=== PATIENT | male | born 1965 | race Caucasian/White ===

== ENCOUNTER 2022-09-02 12:04 | Emergency (ER) | payer MEDICARE, OTHER, SELFPAY ==
[2022-09-02 12:46] VITALS: BP 113/81; PULSE 139; RESP 16; TEMP 36.4; O2SAT 95
[2022-09-02 14:43] LABS: Basophils # 0.1 10^3/uL (0.0-0.1); Basophils % 0.5 %; Eosinophils # 0.7 10^3/uL (0.0-0.8); Eosinophils % 6.2 %; Hematocrit 51.5 % (42.0-52.0); Hemoglobin 16.8 g/dL (11.7-16.6); Lymphocytes # 1.4 10^3/uL (0.8-4.8); Lymphocytes % 12.4 %; Mean Corpuscular HGB Conc 32.6 g/dL (30.0-36.0); Mean Corpuscular Hemoglobin 31.1 pg (28.0-34.0); Mean Corpuscular Volume 95.2 fl (80-94); Mean Platelet Volume 9.8 fL (7.4-10.4); Monocytes # 1.4 10^3/uL (0.2-0.9); Monocytes % 12.9 %; Neutrophils # 7.51 10^3/uL (1.8-7.7); Neutrophils % 67.4 %; Nucleated Red Blood Cells % 0 %; Platelet Count 309 10^3/cmm (130-400); Red Blood Count 5.41 10^6/uL (4.1-5.3); Red Cell Distribution Width 13.8 % (12.1-15.1); White Blood Count 11.2 10^3/uL (4.0-10.0)
--- NOTE | 2022-09-02 15:57 | ED_ITS ---
HPI - Wound/Laceration General: Chief Complaint: Wound/Laceration Stated Complaint: skin abnormality Time Seen by Provider: 09/02/22 15:52 Source: patient Mode of arrival: ambulatory Limitations: no limitations History of Present Illness: 57-year-old male states he has had erythema to his right lower leg he has had a history of cellulitis states he had a cut there a week ago and has had worsening redness he denies any fever denies any pain he denies any worsening proving factors. Associated symptoms: Denies chills, fever(s), nausea or vomiting Review of Systems Const: Denies: fever(s), chills, body aches or change in appetite Eyes: Denies: blurry vision or eye discomfort ENMT: Denies: throat pain or dental pain Card: Denies: chest pain Resp: Denies: dyspnea GI: Denies: abdominal pain, nausea, vomiting or diarrhea : Denies: dysuria Musc: Denies: neck pain or back pain Skin/Breast: Reports: erythema Neuro: Denies: headache(s) Psych: Denies: depression Sky/Lymph: Denies: easy bruising All/Imm: Denies: urticaria Physical Exam Const: COMMON NORMALS: no acute distress, patient oriented x3 and healthy appearing HENMT: COMMON NORMALS: normocephalic and atraumatic HEAD & SCALP: normocephalic and atraumatic Eye: COMMON NORMALS: Equal, round and reactive pupils present and EOMs intact bilaterally PUPIL: Yes Equal, round and reactive pupils present Neck/C-Spine: COMMON NORMALS: full ROM and supple Chest: COMMONS NORMALS: normal inspection of the chest and normal palpation of entire chest wall Resp: COMMON NORMALS: normal respiratory effort, No retractions, No use of accessory muscles and clear to auscultation bilaterally AUSCULTATION: clear to auscultation bilaterally Cardio: COMMON NORMALS: regular rate, regular rhythm and No murmurs present (Cardio) RATE: regular rate RHYTHM: regular rhythm GI: COMMON NORMALS: Normal to inspection, nondistended, normoactive bowel sounds present, Soft to palpation, non-tender and no masses PALPATION: Yes Soft to palpation Extremity: COMMON NORMALS: full ROM NARRATIVE EXTREMITY EXAM: Cellulitis noted to right lower leg no signs of DVT distal pulses intact Neuro: COMMON NORMALS: patient oriented x3, moves all extremities and no focal motor deficits Psych: COMMON NORMALS: mental status grossly normal, Normal thought process present and cooperative THOUGHT PROCESS: Normal thought process present Skin: COMMON NORMALS: no rashes or lesions noted and no wounds GENERAL SKIN EXAM: no rashes or lesions noted Course Vital Signs: Vital signs: Vital Signs Temperature 97.6 F 09/02/22 12:46 Pulse Rate 139 H 09/02/22 12:46 Respiratory Rate 16 09/02/22 12:46 Blood Pressure 113/81 09/02/22 12:46 Pulse Oximetry 95 09/02/22 12:46 Oxygen Delivery Me thod 09/02/22 12:46 MDM - Wound/Laceration Medical Decision Making Patient presents here with cellulitis his white count is normal he is nonseptic appearing no signs of DVT patient given Rocephin here we will place him on Keflex as well he is to follow-up PCP and return if worsening. Lab Data 09/02/22 14:30 Laboratory Results WBC 11.2 10^3/uL (4.0-10.0) H 09/02/22 14:30 RBC 5.41 10^6/uL (4.1-5.3) H 09/02/22 14:30 Hgb 16.8 g/dL (11.7-16.6) H 09/02/22 14:30 Hct 51.5 % (42.0-52.0) 09/02/22 14:30 MCV 95.2 fl (80-94) H 09/02/22 14:30 MCH 31.1 pg (28.0-34.0) 09/02/22 14:30 MCHC 32.6 g/dL (30.0-36.0) 09/02/22 14:30 RDW 13.8 % (12.1-15.1) 09/02/22 14:30 Plt Count 309 10^3/cmm (130-400) 09/02/22 14:30 MPV 9.8 fL (7.4-10.4) 09/02/22 14:30 Neut % (Auto) 67.4 % 09/02/22 14:30 Lymph % (Auto) 12.4 % 09/02/22 14:30 Pacific % (Auto) 12.9 % 09/02/22 14:30 Eos % (Auto) 6.2 % 09/02/22 14:30 Baso % (Auto) 0.5 % 09/02/22 14:30 Neut # (Auto) 7.51 10^3/uL (1.8-7.7) 09/02/22 14:30 Lymph # (Auto) 1.4 10^3/uL (0.8-4.8) 09/02/22 14:30 Pacific # (Auto) 1.4 10^3/uL (0.2-0.9) H 09/02/22 14:30 Eos # (Auto) 0.7 10^3/uL (0.0-0.8) 09/02/22 14:30 Baso # (Auto) 0.1 10^3/uL (0.0-0.1) 09/02/22 14:30 Nucleated RBC % (auto) 0 % 09/02/22 14:30 Nucleated RBCs # 0.0 /100WBC 09/02/22 14:30 Discharge Plan Discharge Patient Disposition: Home Clinical Impression: Cellulitis Condition: Stable Prescriptions: New cephalexin 500 mg capsule 500 mg PO QID 10 Days Qty: 40 0RF Discharge Orders: Discharge ED (Routine); Ordered 09/02/22 Ordered By: Manuel Mcneil Discharge Diet: Advance as tolerated Discharge Activity: Resume usual activity Patient Instructions: Cellulitis (ED) Coding Level of Care Code ED Defense Travel Administrator for Kishan Dick
[2022-09-02] MEDS: cefTRIAXone 1,000 MG in lidocaine 1% 2.1 ML 2 MG IM (16:12)
== END 2022-09-02 16:20 | disposition home or self-care (01) ==
PROVIDERS: Emergency Provider Emergency Medicine
DX: L03.115 Cellulitis of right lower limb (principal)
CPT/HCPCS: 36415; 85025; 96372; 99284; J0696

== ENCOUNTER 2022-09-06 06:33 | Emergency (ER) | payer MEDICARE, OTHER, SELFPAY ==
[2022-09-06 06:45] VITALS: BP 119/71; PULSE 87; RESP 16; TEMP 36.7; O2SAT 97; BMI 23.6
--- NOTE | 2022-09-06 07:03 | W.ED.ALLEREA ---
HPI - Allergic Reaction General: Chief complaint: Allergic Reaction Stated complaint: hives Time Seen by Provider: 09/06/22 06:59 History of Present Illness: HPI narrative: 57 yo male that presents with rash. Patient was seen here a few days ago and treated for cellulitis. Taking keflex. Onset 2 days ago of rash on arms, chest and legs with associated itching. No throat swelling or trouble breathing. No prior h/o allergic reaction to medications. Taking benadryl with improvement. Cellulitis on right arm and right leg is improving Associated symptoms: Deny hoarseness Review of Systems Narrative: generalized rash Const: Denies: fever(s) ENMT: Denies: throat pain, uvular edema, odynophagia, hoarseness or swelling of lips/tongue Resp: Denies: dyspnea or wheezing Skin/Breast: Reports: rash Physical Exam Const: COMMON NORMALS: no acute distress, average body habitus, patient oriented x3, healthy appearing and alert HENMT: THROAT: posterior oropharynx normal and tonsils normal; no uvular edema Resp: EFFORT & INSPECTION: Yes able to speak in complete sentences, No respiratory distress, No audible wheezes and Yes other (normal breath sounds bilaterally) Cardio: COMMON NORMALS: regular rate, S1 normal heart sound present and S2 normal heart sound present RATE: regular rate HEART SOUNDS: S1 normal heart sound present and S2 normal heart sound present GI: INSPECTION: Yes normal to inspection Extremity: OTHER: erythematous area on dorsum of right forearm and right hand with scaling; right lower leg with erythema on pre-tibial surface ; normal distal pulses and sensory / motor function Neuro: COMMON NORMALS: patient oriented x3 SENSORIUM/ORIENTATION: Yes alert Skin: RASHES: rashes noted (urticarial rash on arms, neck, torso) Course Vital Signs: Vital signs: Vital Signs Temperature 98.1 F 09/06/22 06:45 Pulse Rate 87 09/06/22 06:45 Respiratory Rate 16 09/06/22 06:45 Blood Pressure 119/71 09/06/22 06:45 Pulse Oximetry 97 09/06/22 06:45 Oxygen Delivery Me thod 09/06/22 06:45 MDM - Allergic Reaction Medical Decision Making Patient presents with a generalized urticarial rash likely secondary to the cephalexin he has been taking for cellulitis. He does have clinical improvement of his cellulitis. I am going to switch him to doxycycline 100 mg twice daily x7 days. I am placing him also on prednisone 50 mg x 5 days. Have also structured him to take Benadryl 4 times daily. Medical Records patient presents with urticarial rash likely due to cephalexin. Cellulitis improving but patient will need full course of another abx. will treat allergic rxn with prednisone and anti-histamines. Will start doxycycline 100mg BID x 7 days Discharge Plan Discharge Patient Disposition: Home Clinical Impression: Allergic reaction, Cellulitis Condition: Stable Prescriptions: New prednisone 50 mg tablet 50 mg PO DAILY 5 Days Qty: 5 0RF doxycycline hyclate 100 mg tablet 100 mg PO BID 7 Days Qty: 14 0RF No Action cephalexin 500 mg capsule 500 mg PO QID 10 Days Qty: 40 0RF Discharge Orders: Discharge ED (Routine); Ordered 09/06/22 Ordered By: Carola Pierson Patient Instructions: Urticaria (ED), Cellulitis (ED), Opioid Safety, Pain Management Activity Restrictions/Additional Instructions: Stop the cephalexin start the doxycycline twice a day until gone take benadryl 4 times a day as needed for itching follow up in 1 week with your primary doctor Coding Level of Care Code ED Grievance And Appeals Coordinator for Kishan Fwd Exam Detailed
[2022-09-06] MEDS: predniSONE 20 mg Tablet 60 MG PO (07:15)
--- NOTE | 2022-09-06 07:17 | PC.NURSE ---
This nurse dropped one tablet and had to reorder a new one.
[2022-09-06] MEDS: predniSONE 20 mg Tablet PO (07:20)
== END 2022-09-06 07:20 | disposition home or self-care (01) ==
PROVIDERS: Emergency Provider Emergency Medicine
DX: T78.40XA Allergy, unspecified, initial encounter (principal); X58.XXXA Exposure to other specified factors, initial encounter; L50.9 Urticaria, unspecified; Z79.2 Long term (current) use of antibiotics; L03.90 Cellulitis, unspecified
CPT/HCPCS: 99283; J7512

== ENCOUNTER 2022-09-20 10:14 | Emergency (ER) | payer MEDICARE, OTHER, SELFPAY ==
[2022-09-20 10:16] VITALS: BP 122/85; PULSE 102; RESP 16; TEMP 36.7; O2SAT 95; BMI 25.0
--- NOTE | 2022-09-20 11:54 | W.ED.ALLEREA ---
HPI - Allergic Reaction General: Chief complaint: Allergic Reaction Stated complaint: rash Time Seen by Provider: 09/20/22 11:27 Source: patient Mode of arrival: ambulatory History of Present Illness: HPI narrative: 57-year-old male presents emergency room complaining of rash and pruritus. He was on an antibiotic for cellulitis for last 2 weeks he did intermittently had itching is gotten progressively worse he has taken Benadryl for which helps. He was on doxycycline prior to that he had been on cephalexin has a similar type reaction. He is on day 6 of 7 of the doxycycline. Is been getting progressively worsening despite his use of albuterol. Cellulitis on his legs is improved somewhat. MD complaint: allergic reaction Onset (ago): day(s) Exposure: medication (Doxycycline) Associated symptoms: Deny abdominal pain, difficulty breathing, dysphagia, dizziness, facial swelling, hoarseness, itching, lip swelling, nausea, tongue swelling or vomiting Severity: mild Treatment prior to arrival: benadryl Previous Allergic Reaction History: other (Rash and pruritus from cephalexin) Review of Systems Const: Denies: fever(s), chills, body aches, change in appetite, fatigue or malaise ENMT: Denies: hoarseness Card: Denies: chest pain, edema, dyspnea on exertion or orthopnea Resp: Denies: dyspnea, productive cough or non-productive cough GI: Denies: abdominal pain, nausea, vomiting or dysphagia : Denies: flank pain, dysuria, urinary frequency or urinary urgency Skin/Breast: Denies: rash or pruritus Neuro: Denies: dizziness All/Imm: Denies: tongue swelling or facial swelling [facility] ED PFSH: Medical History (Updated 09/20/22 @ 11:56 by Arnoldo Reaves DO) Cellulitis Physical Exam Const: COMMON NORMALS: no acute distress GENERAL APPEARANCE: cooperative and comfortable ORIENTATION/CONSCIOUSNESS: Yes awake, Yes oriented to person, Yes oriented to place and Yes oriented to time HENMT: COMMON NORMALS: normocephalic, atraumatic and hearing grossly normal bilaterally HEAD & SCALP: normocephalic and atraumatic Resp: COMMON NORMALS: normal respiratory effort, No retractions, No use of accessory muscles and clear to auscultation bilaterally AUSCULTATION: clear to auscultation bilaterally Cardio: COMMON NORMALS: regular rate, regular rhythm and No murmurs present (Cardio) RATE: regular rate RHYTHM: regular rhythm GI: COMMON NORMALS: Soft to palpation and No hepatosplenomegaly present AUSCULTATION: Yes normoactive bowel sounds PALPATION: Yes Soft to palpation, No Tenderness to palpation present (GI), No Guarding due to palpation present (GI) and Yes No hepatosplenomegaly present Extremity: COMMON NORMALS: normal to inspection, capillary refill normal, no clubbing, cyanosis or edema, no calf tenderness and no pedal edema Neuro: SENSORIUM/ORIENTATION: Yes oriented to person, Yes oriented to place and Yes oriented to time Skin: OTHER: Excoriations lower extremities bilaterally with mild thickening of dry eschars in place no significant erythema with this time. Course Vital Signs: Vital signs: Vital Signs Temperature 98.1 F 09/20/22 10:16 Pulse Rate 95 09/20/22 12:26 Respiratory Rate 15 09/20/22 12:26 Blood Pressure 123/83 09/20/22 12:26 Pulse Oximetry 96 09/20/22 12:26 Oxygen Delivery Me thod 09/20/22 10:16 MDM - Allergic Reaction Medical Decision Making Cellulitis is better. We will have him stop the doxycycline and put him on steroids and hydroxyzine. So as not to blur between changing antibiotics will hold off on starting him on any Bactrim him checkup with his primary care doctor in the next 2 to 3 days if he is any signs of recurrent cellulitis might try Bactrim. Medical Records I reviewed the patient's medical records. Lab Data I reviewed the patient's lab results. Discharge Plan Discharge Patient Disposition: Home Clinical Impression: Allergic reaction, Cellulitis Condition: Stable Prescriptions: New Medrol (Nate) 4 mg tablets,dose pack See Rx Instructions .ROUTE .COMPLEX Qty: 21 0RF Rx Instructions: orally per package directions hydroxyzine HCl 25 mg tablet 25 mg PO Q6H PRN (Reason: itching) Qty: 20 0RF Discharge Orders: Discharge ED (Routine); Ordered 09/20/22 Ordered By: Arnoldo Reaves Discharge Activity: Increase activity as tolerated Patient Instructions: Opioid Safety, Pain Management Activity Restrictions/Additional Instructions: You are seen today for allergic reaction likely to the doxycycline. Stop the doxycycline. You are given steroids here start oral steroids tomorrow and complete the 7-day course. He can use hydroxyzine as needed. Follow-up with your doctor to reevaluate in 2 to 3 days in the office. We will hold off on restarting any antibiotics so as to prevent any confusion if the reaction persists. Coding Level of Care Code ED Supervisor Industrial Arts Education for Kishan Dick Exam Detailed
[2022-09-20] MEDS: diphenhydrAMINE 50 mg/mL SDV 1mL IVP (12:16)
[2022-09-20 12:26] VITALS: BP 123/83; PULSE 95; RESP 15; O2SAT 96
== END 2022-09-20 12:23 | disposition home or self-care (01) ==
PROVIDERS: Emergency Provider Family Medicine
DX: L03.116 Cellulitis of left lower limb (principal); L03.115 Cellulitis of right lower limb; T36.95XA Adverse effect of unspecified systemic antibiotic, initial encounter; T36.4X5A Adverse effect of tetracyclines, initial encounter
CPT/HCPCS: 96374; 96375; 99284; J1200; J2930

== ENCOUNTER 2022-12-21 07:19 | Emergency (ER) | payer MEDICARE, OTHER, SELFPAY ==
[2022-12-21 07:24] VITALS: BP 140/87; PULSE 106; RESP 16; TEMP 36.3; O2SAT 97; BMI 26.1
--- NOTE | 2022-12-21 07:24 | ED_ITS ---
HPI - Skin/Abscess/Foreign Bdy General: Chief complaint: Skin/Abscess/Foreign Body Stated complaint: skin abnormality Time Seen by Provider: 12/21/22 07:23 Source: patient Mode of arrival: ambulatory Limitations: no limitations History of Present Illness: Patient is a 57-year-old male who presents to ED today with a complaint of what he states is cellulitis to his right lower leg as well as a generalized pruritic rash. Patient states he had a similar presentation about 4 months ago when he was seen here in the ED. He states he was diagnosed with cellulitis and placed on cephalexin. He states he then had an allergic reaction to the Keflex and was ultimately switched to Doxycycline. He was also treated with steroids and Vistaril some point during that episode for allergic reaction/pruritus. Patient denies fevers or chills. Of note he recently had shave biopsies performed to his chin and back lesion. He was scheduled for Mohs surgery of the chin next week but he canceled this appointmen t stating I think the biopsy took care of it . He states his next appointment with dermatology is on 01/05. MD complaint: rash Onset (ago): week(s) Tetanus up to date: yes Location: chest, back, LUE, RUE and RLE Severity: moderate Quality: pruritic Pain Consistency: constant (R LE) Relieving factors: none Exacerbating factors: none Context: none Associated symptoms: Reports no associated symptoms; Deny chills or fever(s) Treatments prior to arrival: none Review of Systems Const: Denies: fever(s), chills, body aches, fatigue or malaise Card: Denies: chest pain Resp: Denies: dyspnea GI: Denies: abdominal pain Skin/Breast: Reports: rash, pruritus and erythema Neuro: Denies: headache(s) PFS ED PFSH: Medical History Cellulitis Physical Exam Const: COMMON NORMALS: no acute distress, average body habitus, patient oriented x3, no limitations, healthy appearing, alert and well nourished Eye: GENERAL EYE: appearance normal, both eyes and all related structures Neck/C-Spine: COMMON NORMALS: no lymphadenopathy Resp: COMMON NORMALS: normal respiratory effort Extremity: COMMON NORMALS: normal to inspection, full ROM, capillary refill normal, no calf tenderness and no pedal edema GENERAL: Yes normal exam except as noted Neuro: COMMON NORMALS: patient oriented x3, moves all extremities, no focal motor deficits and no sensory deficits noted SENSORIUM/ORIENTATION: Yes alert Skin: NARRATIVE SKIN EXAM: pt has an area to anterior R lower leg that is erythematous, warm to the touch, and consists of confluent maculopapular lesions; there is localized edema to the tissue with excoriations he has other rash somewhat similar in appearance without the cellulitic appearance/warmth to his bilateral UEs and trunk-mainly his back; back has several erythematous papules present with several larger scaly plaque-like lesions with diffuse excoriations SKIN IMAGES (MALE): 1. Course Vital Signs: Vital signs: Vital Signs Temperature 97.4 F L 12/21/22 07:24 Pulse Rate 106 H 12/21/22 07:24 Respiratory Rate 16 12/21/22 07:24 Blood Pressure 140/87 12/21/22 07:24 Pulse Oximetry 97 12/21/22 07:24 Oxygen Delivery Me thod 12/21/22 07:24 MDM - Skin/Abscess/Foreign Bdy Medicial Decision Making Patient states his rash is similar to his last episode back in August. He has not been on any antibiotics recently to cause an allergic reaction. I do believe he has probably induced a cellulitis to his right lower extremity from scratching as this area does appear acutely inflamed and warm to the touch which are characteristics not present with the other skin lesions on his back/arms. I would like patient to follow up with dermatology for evaluation/diagnosis of his non-specific dermatitis. I will cover him for the cellulitis with antibiotics and place him on Vistaril to help with the itching. Steroids are not indicated in actue cellulitis so we will hold off on those for now although he may need these later once the cellulitis clears. He has an appointment with dermatology on 01/05. We did discuss him canceling his Mohs surgery for his chin skin lesion. I recommended he contacted the dermatology clinic and try to reschedule this and stressed the importance of this procedure and how a biopsy for diagnosis is not a cure for basal cell carcinoma. Discharge Plan Discharge Patient Disposition: Home Clinical Impression: Cellulitis Condition: Stable Prescriptions: New doxycycline monohydrate 100 mg capsule 100 mg PO Q12H 10 Days Qty: 20 0RF Vistaril 50 mg capsule 50 mg PO Q8H PRN (Reason: itching) Qty: 20 0RF No Action amlodipine 5 mg tablet 5 mg PO DAILY hydrochlorothiazide 12.5 mg tablet 12.5 mg PO DAILY ketoconazole 2 % shampoo 1 applic topical .2x weekly Qty: 120 6RF Rx Instructions: Lather into scalp 2-3 times weekly. Allow to sit on scalp for 5 minutes before rinsing. Discharge Orders: Discharge ED (Routine); Ordered 12/21/22 Ordered By: Jennifer Noguera Patient Instructions: Cellulitis (ED) Activity Restrictions/Additional Instructions: As we discussed I would like you to follow-up with dermatology. You have stated you have an appointment scheduled on 01/05. You indicated you canceled your upcoming Mohs surgery-we discussed speaking to dermatology to reschedule this as this is a very important procedure in treating the skin cancer on your chin. Coding Level of Care Code ED Electron Beam Photo Mask Maker for Kishan Dick
== END 2022-12-21 08:57 | disposition home or self-care (01) ==
PROVIDERS: Emergency Provider Physician Assistant; PCP Family Medicine
DX: L03.115 Cellulitis of right lower limb (principal)
CPT/HCPCS: 99284

== ENCOUNTER → 2023-10-10 15:24 | Outpatient (BNVA) | payer MEDICARE, SELFPAY | PROVIDERS: PCP Family Medicine; Visit Provider Nurse Practitioner Family | DX: L72.0 Epidermal cyst (principal); B35.0 Tinea barbae and tinea capitis; L57.8 Other skin changes due to chronic exposure to nonionizing radiation; D22.4 Melanocytic nevi of scalp and neck; L81.4 Other melanin hyperpigmentation | CPT/HCPCS: 99214 ==

== ENCOUNTER 2023-11-03 12:03 | Emergency (ER) | payer MEDICARE, SELFPAY ==
[2023-11-03 12:05] VITALS: BP 139/89; PULSE 110; RESP 17; TEMP 36.5; O2SAT 96; BMI 25.6
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
--- NOTE | 2023-11-03 12:14 | XR_ITS ---
WS: [id number] [place] [id number] REASON FOR EXAM: trauma/pain/swelling FINDINGS: Right humerus intact without fracture. No soft tissue abnormality. IMPRESSION: No fracture identified.
[2023-11-03 13:09] VITALS: BP 139/89; PULSE 110; RESP 17; TEMP 36.5; O2SAT 96
--- NOTE | 2023-11-03 13:13 | PC.PHAR ---
pt discharged before meds were reconciled- meds that were entered 11/03/23 is what was on ext med history
== END 2023-11-03 13:10 | disposition home or self-care (01) ==
PROVIDERS: Emergency Provider Internal Medicine; PCP Family Medicine
DX: S40.021A Contusion of right upper arm, initial encounter (principal); V86.59XA Driver of other special all-terrain or other off-road motor vehicle injured in nontraffic accident, initial encounter
CPT/HCPCS: 73060; 99283

== ENCOUNTER 2023-11-13 11:57 | Emergency (ER) | payer MEDICARE, SELFPAY ==
[2023-11-13 12:43] VITALS: BP 138/94; PULSE 91; RESP 18; TEMP 36.4; O2SAT 97; BMI 25.6
[2023-11-13 15:33] VITALS: BP 131/107; PULSE 88; RESP 16; O2SAT 96
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
== END 2023-11-13 15:33 | disposition home or self-care (01) ==
PROVIDERS: Emergency Provider Family Medicine; PCP Family Medicine
DX: L03.113 Cellulitis of right upper limb (principal); B35.0 Tinea barbae and tinea capitis; L57.8 Other skin changes due to chronic exposure to nonionizing radiation; D22.4 Melanocytic nevi of scalp and neck; L81.4 Other melanin hyperpigmentation; L57.0 Actinic keratosis; L21.8 Other seborrheic dermatitis
CPT/HCPCS: 17000; 99214; 99283

== ENCOUNTER → 2023-11-15 08:48 | Outpatient (BNVA) | payer MEDICARE, SELFPAY | PROVIDERS: PCP Family Medicine; Visit Provider Dermatology | DX: D48.5 Neoplasm of uncertain behavior of skin (principal) | CPT/HCPCS: 11403; 12032 ==

== ENCOUNTER 2024-12-25 12:56 | Emergency (ER) | payer MEDICARE, SELFPAY ==
[2024-12-25 13:23] VITALS: BP 150/96; PULSE 100; RESP 18; TEMP 36.6; O2SAT 97; BMI 25.0
--- NOTE | 2024-12-25 14:09 | PC.PHAR ---
patient just finished clindamycin 300 tid filled 12/16/24 7 days
--- NOTE | 2024-12-25 14:26 | W.ED.EXTPRO ---
HPI - Extremity Problem General: Chief complaint: Extremity Problem,Nontraumatic Stated complaint: rash on face and leg Time Seen by Provider: 12/25/24 14:07 Source: patient Mode of arrival: ambulatory Limitations: no limitations History of Present Illness: This patient states he is here because he thinks he has cellulitis of his right leg. He states he developed a skin rash similar to that he is experienced in the past and was seen in the urgent care and given clindamycin. He apparently had some hydroxyzine from her previous episode has been taking that periodically as well. States initially had some small dot areas on his skin of his right leg and they were quite pruritic and he was in the shower and it felt good to scrub them and he scrubbed them for quite a while. He states his symptoms have worsened over the past couple days. He denies any fevers or chills body aches joint pains or joint swelling. He denies any blood in his urine blood in his stools etc. He has a history of COPD but does not smoke anymore. He does take ibuprofen on a daily basis for neck pain. He states that he has not had fevers or chills nausea vomiting diarrhea and has been eating and drinking normally. Associated symptoms: Reports rash; Deny chest pain or fever(s) Related Data Home Medications ?Medication ?Instructions ?Recorded ?Confirmed albuterol sulfate 90 mcg/actuation 1 puff inhalation DAILY 11/03/23 12/25/24 aerosol inhaler amlodipine 10 mg tablet 10 mg PO QAM 11/03/23 12/25/24 montelukast 10 mg tablet 10 mg PO QAM 11/03/23 12/25/24 simvastatin 10 mg tablet 10 mg PO QAM 11/03/23 12/25/24 Previous Rx's ?Medication ?Instructions ?Recorded doxycycline hyclate 100 mg capsule 100 mg PO BID 14 days #28 caps 12/25/24 famotidine 40 mg tablet (Pepcid) 40 mg PO BID #14 tabs 12/25/24 hydroxyzine HCl 25 mg tablet 25 mg PO Q6H PRN itching #30 tabs 12/25/24 prednisone 20 mg tablet 20 mg PO BID 7 days #14 tabs 12/25/24 Allergies Allergy/AdvReac Type Severity Reaction Status Date / Time adhesive tape Allergy Unknown Verified 11/13/23 12:43 cephalexin (From Keflex) Allergy ALGY-Rash Verified 11/13/23 12:43 Review of Systems Const: Denies: fever(s) or chills ENMT: Denies: throat pain or odynophagia Card: Denies: chest pain, palpitations, syncope or pre-syncope Resp: Denies: dyspnea, productive cough or non-productive cough GI: Denies: abdominal pain, nausea, vomiting, hematemesis, hematochezia or melena : Denies: flank pain, difficulty urinating, dysuria or hematuria Musc: Reports: extremity swelling; Denies: neck pain or back pain Skin/Breast: Reports: rash, pruritus and erythema Neuro: Denies: headache(s), numbness in extremities or weakness in extremities Psych: Denies: anxiety or depression Endo: Denies: polyuria or polydipsia PFSH ED PFSH: Medical History History of nonmelanoma skin cancer Cellulitis Physical Exam Narrative: EXAM NARRATIVE: He is in no acute distress and makes good eye contact and interacts in a normal fashion. Const: COMMON NORMALS: no acute distress, average body habitus and patient oriented x3 GENERAL APPEARANCE: cooperative and comfortable HENMT: COMMON NORMALS: normocephalic, Normal nasal mucous membranes and turbinates present, moist oral mucous membranes and oropharynx normal HEAD & SCALP: normocephalic FACE & SINUS: face symmetric NOSE: Normal nasal mucous membranes and turbinates present Eye: COMMON NORMALS: Equal, round and reactive pupils present, EOMs intact bilaterally and conjunctivae normal CONJUNCTIVA: Yes conjunctivae normal PUPIL: Yes Equal, round and reactive pupils present Neck/C-Spine: COMMON NORMALS: full ROM, no lymphadenopathy and no JVD Lymph: LYMPHATIC: no lymphadenopathy noted Resp: COMMON NORMALS: normal respiratory effort, No use of accessory muscles and clear to auscultation bilaterally AUSCULTATION: clear to auscultation bilaterally Cardio: COMMON NORMALS: no JVD, regular rate, regular rhythm, No murmurs present (Cardio) and Peripheral pulses 2+ throughout RATE: regular rate RHYTHM: regular rhythm PERIPHERAL PULSES: Peripheral pulses 2+ throughout GI: COMMON NORMALS: Normal to inspection, nondistended, normoactive bowel sounds present, Soft to palpation and non-tender PALPATION: Yes Soft to palpation Back/Pelvis: COMMON NORMALS: thoracic and lumbar spine normal to inspection and no thoracic nor lumbar tenderness Extremity: COMMON NORMALS: full ROM, no calf tenderness and no pedal edema NARRATIVE EXTREMITY EXAM: His right lower extremities remarkable for what appears to be petechiae proximal to an area of marked excoriation from mid anterior leg to ankle. There is no ascending lymphangitis or ascending redness or serpiginous borders. There is no confluence to any erythema. Neuro: COMMON NORMALS: patient oriented x3, moves all extremities, no focal motor deficits and no sensory deficits noted Psych: COMMON NORMALS: mental status grossly normal Skin: COMMON NORMALS: turgor normal SKIN IMAGES (MALE):  1. Area of excoriation with proximal petechiae GENERAL SKIN EXAM: turgor normal and petechiae (Right leg he also has malar distribution of erythema) Course Reevaluation(s): Reevaluation #1: Reviewed findings with the patient in detail. No evidence at this time to suggest TTP or ITP. He has no anemia, thrombocytopenia, hematuria or other findings to support that diagnosis at this time. We also did a more involved history regarding potential tick exposure etc. Patient states he found a tick crawling on him earlier this year but did not have any attached ticks this year. Unlikely to be [place] spotted fever etc. However we will go ahead and switch him to doxycycline, add a course of steroids as well as antihistamines and both H1 and H2 to reduce his pruritus and itching as I think this is contributing to his current clinical picture. I discussed expected course and also specific return precautions. Patient voiced understanding. Time: 17:34 Vital Signs: Vital signs: Vital Signs Temperature 97.9 F 12/25/24 13:23 Pulse Rate 100 12/25/24 13:23 Respiratory Rate 18 12/25/24 13:23 Blood Pressure 150/96 12/25/24 13:23 Pulse Oximetry 97 12/25/24 13:23 Oxygen Delivery Me thod Room Air 12/25/24 13:23 MDM - Extremity (Nontraumatic) Medical Decision Making This patient presented as noted in the HPI. He has had recurrent inflammation possible infection of his right leg. He was previously seen at an outpatient clinic and started on clindamycin. States it is quite pruritic and he is resorted to scratching it particularly when he is bathing in the shower. He denies any fevers or chills or constitutional symptoms otherwise. His clinical exam revealed some scattered petechiae over the right lower leg with excoriated skin distal to that. There was no ascending erythema or lymphangitis or lymphadenopathy. Was a concern that he possibly had a condition such as ITP or TTP as well as possible tick related illness. History did not confirm the latter but laboratories were obtained to ensure that he had no evidence of anemia, thrombocytopenia or other concerning laboratory findings. They were all reassuring. Is not clear what the etiology to his recurrent dermatitis has been on his right lower leg. He apparently is excoriated this area and has some localized infection and therefore we will switch him to doxycycline, course of steroids as well as both H2 and H1 blockers. Does not appear to have any condition that requires admission and further ER evaluation. No evidence at this time to suggest sepsis, necrotizing fasciitis or other deep space infection etc. Lab Data I reviewed the patient's lab results. 12/25/24 14:54 12/25/24 14:54 Laboratory Results WBC 10.21 10^3/uL (3.29-11.43) 12/25/24 14:54 RBC 5.56 10^6/uL (3.85-5.65) 12/25/24 14:54 Hgb 16.40 g/dL (11.27-16.99) 12/25/24 14:54 Hct 52.7 % (37-53) 12/25/24 14:54 MCV 94.8 fl (82-101) 12/25/24 14:54 MCH 29.5 pg (27-33) 12/25/24 14:54 MCHC 31.1 g/dL (30-55) 12/25/24 14:54 RDW 14.1 % (12.1-15.1) 12/25/24 14:54 Plt Count 332 10^3/cmm (157-399) 12/25/24 14:54 MPV 9.3 fL (7.4-10.4) 12/25/24 14:54 Neut % (Auto) 66.5 % 12/25/24 14:54 Lymph % (Auto) 15.7 % 12/25/24 14:54 Mcculloch % (Auto) 12.2 % 12/25/24 14:54 Eos % (Auto) 4.4 % 12/25/24 14:54 Baso % (Auto) 0.8 % 12/25/24 14:54 Neut # (Auto) 6.79 10^3/uL (1.8-7.7) 12/25/24 14:54 Lymph # (Auto) 1.6 10^3/uL (0.8-4.8) 12/25/24 14:54 [place]ulloch # (Auto) 1.3 10^3/uL (0.2-0.9) H 12/25/24 14:54 Eos # (Auto) 0.5 10^3/uL (0.0-0.8) 12/25/24 14:54 Baso # (Auto) 0.1 10^3/uL (0.0-0.1) 12/25/24 14:54 Nucleated RBC % (auto) 0 % 12/25/24 14:54 Nucleated RBCs # 0.0 /100WBC 12/25/24 14:54 PT 12.60 SECONDS (12.1-14.9) 12/25/24 14:54 INR 0.88 (0.8-1.2) 12/25/24 14:54 APTT 30.3 SECONDS (23.9-36.7) 12/25/24 14:54 Sodium 143 mmol/L (136-145) 12/25/24 14:54 Potassium 4.9 mmol/L (3.5-5.1) 12/25/24 14:54 Chloride 106 mmol/L (98-107) 12/25/24 14:54 Carbon Dioxide 22 mmol/L (22-29) 12/25/24 14:54 Anion Gap 19.9 (5-19) H 12/25/24 14:54 BUN 19 mg/dL (6-20) 12/25/24 14:54 Creatinine 0.8 mg/dL (0.7-1.2) 12/25/24 14:54 GFR Calculation 98.9 mL/min (90-130) 12/25/24 14:54 Glucose 106 mg/dL (65-115) 12/25/24 14:54 Calculated Osmolality 299 mOsm/kg (285-295) H 12/25/24 14:54 Calcium 10.2 mg/dL (8.5-10.5) 12/25/24 14:54 Total Bilirubin 0.2 mg/dL (0.15-1.2) 12/25/24 14:54 AST 34 U/L (0-40) 12/25/24 14:54 ALT 35 U/L (0-41) 12/25/24 14:54 Alkaline Phosphatase 91 U/L (40-130) 12/25/24 14:54 Total Protein 7.7 g/dL (6.6-8.7) 12/25/24 14:54 Albumin 4.6 g/dL (3.5-5.2) 12/25/24 14:54 Globulin 3.1 g/dL (1.3-4.6) 12/25/24 14:54 Urine Color Yellow (Yellow) 12/25/24 16:43 Urine Appearance Clear (CLEAR) 12/25/24 16:43 Urine pH 6.5 (5-7) 12/25/24 16:43 Ur Specific [place] 1.019 (1.005-1.030) 12/25/24 16:43 Urine Protein Negative (Negative) 12/25/24 16:43 Urine Glucose (UA) Negative (Normal) 12/25/24 16:43 Urine Ketones Negative (Negative) 12/25/24 16:43 Urine Blood Negative (Negative) 12/25/24 16:43 Urine Nitrate Negative (Negative) 12/25/24 16:43 Urine Bilirubin Negative (Negative) 12/25/24 16:43 Urine Urobilinogen 0.2 mg/dL (Negative) 12/25/24 16:43 Ur Leukocyte Esterase Negative (Negative) 12/25/24 16:43 Urine RBC 0-2 /hpf (0-2) 12/25/24 16:43 Urine WBC 0-5 /hpf (0-5) 12/25/24 16:43 Ur Squamous Epith Cells 0-5 /hpf (0-5) 12/25/24 16:43 Amorphous Sediment Not Reportable 12/25/24 16:43 Urine Bacteria None seen /hpf (NONE) 12/25/24 16:43 Hyaline Casts 0.81 /lpf 12/25/24 16:43 No radiology studies performed this visit Discharge Plan Discharge Patient Disposition: Home Clinical Impression: Cellulitis Condition: Stable Prescriptions: New prednisone 20 mg tablet 20 mg PO BID 7 Days Qty: 14 0RF doxycycline hyclate 100 mg capsule 100 mg PO BID 14 Days Qty: 28 0RF famotidine [Pepcid] 40 mg tablet 40 mg PO BID Qty: 14 0RF hydroxyzine HCl 25 mg tablet 25 mg PO Q6H PRN (Reason: itching) Qty: 30 0RF No Action simvastatin 10 mg tablet 10 mg PO QAM amlodipine 10 mg tablet 10 mg PO QAM montelukast 10 mg tablet 10 mg PO QAM albuterol sulfate 90 mcg/actuation HFA aerosol inhaler 1 puff INHALATION DAILY Discharge Orders: Discharge ED (Routine); Ordered 12/25/24 Ordered By: Tyshawn Little Referrals: Kinga Vann MD [Primary Care Provider] - 4-7 days (ED referral follow-up for right leg cellulitis) Discharge Diet: Advance as tolerated Discharge Activity: Resume usual activity Patient Instructions: Opioid Safety, Pain Management Activity Restrictions/Additional Instructions: As we discussed your blood test today did not show any signs of a serious condition however we made some changes in your medication to help with your right leg condition. You should continue to take those medications that we have prescribed until they are completely finished. You should stop the previous antibiotic that you were given. Should follow-up with your primary care doctor in the next 5 to 7 days for reevaluation but you may return to the emergency department at any time should your symptoms worsen you develop new or concerning symptoms or any other concerns. Print Language: Luxembourgish Coding Level of Care Code ED Controller [employer] for Kishan Dick
[2024-12-25 15:04] LABS: Basophils # 0.1 10^3/uL (0.0-0.1); Basophils % 0.8 %; Eosinophils # 0.5 10^3/uL (0.0-0.8); Eosinophils % 4.4 %; Hematocrit 52.7 % (37-53); Lymphocytes # 1.6 10^3/uL (0.8-4.8); Lymphocytes % 15.7 %; Mean Corpuscular HGB Conc 31.1 g/dL (30-55); Mean Corpuscular Hemoglobin 29.5 pg (27-33); Mean Corpuscular Volume 94.8 fl (82-101); Mean Platelet Volume 9.3 fL (7.4-10.4); Monocytes # 1.3 10^3/uL (0.2-0.9); Monocytes % 12.2 %; Neutrophils # 6.79 10^3/uL (1.8-7.7); Neutrophils % 66.5 %; Nucleated Red Blood Cells % 0 %; Platelet Count 332 10^3/cmm (157-399); Red Blood Count 5.56 10^6/uL (3.85-5.65); Red Cell Distribution Width 14.1 % (12.1-15.1); White Blood Count 10.21 10^3/uL (3.29-11.43)
[2024-12-25 15:16] LABS: INR 0.88 (0.8-1.2)
[2024-12-25 15:17] LABS: Partial Thromboplastin Time 30.3 SECONDS (23.9-36.7)
[2024-12-25 15:25] LABS: Alanine Aminotransferase 35 U/L (0-41); Albumin Level 4.6 g/dL (3.5-5.2); Alkaline Phosphatase 91 U/L (40-130); Blood Urea Nitrogen 19 mg/dL (6-20); Calcium 10.2 mg/dL (8.5-10.5); Carbon Dioxide 22 mmol/L (22-29); Chloride 106 mmol/L (98-107); Creatinine Clr Calc Pharmacy 90.1626; Globulin 3.1 g/dL (1.3-4.6); Glomerular Filtration Rate 98.9 mL/min (90-130); Glucose 106 mg/dL (65-115); Osmolality Calculated 299 mOsm/kg (285-295); Sodium 143 mmol/L (136-145); Total Bilirubin 0.2 mg/dL (0.15-1.2); Total Protein 7.7 g/dL (6.6-8.7)
[2024-12-25 15:27] LABS: Anion Gap 19.9 (5-19); Aspartate Amino Transferase 34 U/L (0-40); Potassium 4.9 mmol/L (3.5-5.1)
[2024-12-25 16:55] LABS: Bilirubin Urine Negative (Negative); Blood Urine Negative (Negative); Glucose Urine UA Negative (Normal); Ketones Urine Negative (Negative); Leukocyte Esterase Urine Negative (Negative); Nitrate Urine Negative (Negative); Protein Urine Negative (Negative); Specific Gravity, Urine 1.019 (1.005-1.030); Urine Appearance Clear (CLEAR); Urine Color Yellow (Yellow); Urobilinogen Urine 0.2 mg/dL (Negative); pH Urine 6.5 (5-7)
[2024-12-25 17:01] LABS: Add Urine Microscopic? YES; Bacteria Urine None Seen /hpf; Hyaline Casts Urine 0.81 /lpf; RBC Urine 0-2 /hpf (0-2); Squamous Epithelial Cell Urine 0-5 /hpf (0-5); WBC Urine 0-5 /hpf (0-5)
[2024-12-25 17:04] LABS: Add Urine Culture? No
[2024-12-25] MEDS: famotidine 20 mg Tablet 40 MG PO (17:35)
[2024-12-25] MEDS: dexamethasone 4 mg Tablet 10 MG PO (17:35)
[2024-12-25 17:46] VITALS: BP 154/107; PULSE 97; O2SAT 96
== END 2024-12-25 17:49 | disposition home or self-care (01) ==
PROVIDERS: Emergency Provider Emergency Medicine; PCP Family Medicine
DX: L03.115 Cellulitis of right lower limb (principal); Z85.828 Personal history of other malignant neoplasm of skin
CPT/HCPCS: 36415; 80053; 81001; 85025; 85610; 85730; 99283; J8540; J9999